=== PATIENT | male | born 1975 | race Caucasian/White ===

== ENCOUNTER 2017-03-05 15:54 | Observation (INO) | payer BC ==
[~2017-03-05] VITALS: Ht 182.9 cm; Wt 123.2 kg
[2017-03-05 19:48] VITALS: BP 159/94; PULSE 81; TEMP 36.7; O2SAT 96
[2017-03-05 19:56] VITALS: BP 159/94; PULSE 81; TEMP 36.7; Ht 182.9 cm; Wt 123.2 kg
[2017-03-05] MEDS ORDERED: ONDANSETRON INJ 2 MG/ML 2 ML VIAL IV PRN (21:00)
[2017-03-05] MEDS ORDERED: ACETAMINOPHEN 325 MG TAB PO PRN (21:00)
[2017-03-05] MEDS ORDERED: ATV/1 PO (21:04)
[2017-03-05] MEDS ORDERED: LORAZEPAM 0.5 MG TAB PO PRN (21:15)
[2017-03-05] MEDS ORDERED: IV FLUIDS COMPLETED PRN ×2 (21:15→23:15)
[2017-03-05] MEDS: SODIUM CHLORIDE 0.9% 1000ML 1,000 ML IV SCH (21:34)
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
[2017-03-05 22:17] LABS: PROTHROMBIN TIME (PATIENT) 10.4 SECONDS (9.0-12.0)
[2017-03-05 23:41] VITALS: BP 118/68; PULSE 81; TEMP 36.5; O2SAT 96
[2017-03-05 23:42] LABS: BENZODIAZEPINE, URINE NEG (NEG); COCAINE,URINE NEG (NEG); PHENCYCLIDINE, URINE NEG (NEG)
[2017-03-06] VITALS (8 sets, daily range): BP systolic 98–156; BP diastolic 59–94; PULSE 63–94; TEMP 36.5–37.2; O2SAT 92–99
[2017-03-06 03:19] LABS: HEMATOCRIT 38.9 % (42-52); MEAN CELL VOLUME 89.2 fL (80-100); MEAN CORPUSCULAR HEMOGLOBIN 30.5 pg (25-34); MEAN CORPUSCULAR HGB CONC 34.2 g/dl (32-36); MEAN PLATELET VOLUME 9.8 fL (7.4-10.4); PLATELET COUNT 229 K/uL (130-400); RED BLOOD COUNT 4.36 M/uL (4.7-6.1); WHITE BLOOD COUNT 6.22 K/uL (4.8-10.8)
[2017-03-06 03:35] LABS: BLOOD UREA NITROGEN 17 mg/dl (7-18); BUN/CREATININE RATIO 18.5 (10-20); CARBON DIOXIDE 33 mmol/L (21-32); CHLORIDE 110 mmol/L (98-107); CREATININE 0.93 mg/dl (0.60-1.40); GLUCOSE 127 mg/dl (70-99); POTASSIUM 4.3 mmol/L (3.5-5.1); SODIUM 143 mmol/L (136-145)
[2017-03-06] MEDS ORDERED: ENOXAPARIN 40 MG/0.4 ML SYR SC SCH (07:00)
[2017-03-06] MEDS: SODIUM CHLORIDE 0.9% 1000ML 1,000 ML IV SCH (10:35)
[2017-03-06] MEDS ORDERED: MECLIZINE HCL 12.5 MG TAB PO ONE (13:15)
--- NOTE | 2017-03-06 13:50 | Progress Note ---
Medicine Progress Note Date & Time of Visit: Mar 06, 2017 at 13:30. Subjective Pt was seen and examined Sitting in bed with no distress eating lunch Pt said that he still feels a little dizzy and lightheadedness Denies any chest pain, palpitation, dizziness and sob He ambulated with no difficulty during PT Objective Last 8 Hrs Date Time Temp Pulse Resp B/P Pulse Ox O2 Delivery O2 Flow Rate FiO2 03/06/17 11:35 37.2 63 20 156/94 96 Room Air 03/06/17 08:00 98 Room Air 03/06/17 07:15 36.5 84 20 125/76 98 Room Air 77 136/79 84 142/80 Physical Exam: General- No acute distress Head- atraumatic Eyes- PERRL, EOMI ENT- oropharynx clear Neck- supple, no JVD Lungs- clear to auscultation Heart- regular rhythm; no murmur Abdomen- normal bowel sounds, soft Extremities- no pretibial edema, no calf tenderness Neuro- alert, oriented x 3; PERRL, EOMI; no facial palsy; no dysarthria; motor 5 /5 bilaterally Skin- warm & dry Laboratory Results: Last 24 Hours Test 03/05/17 21:52 03/05/17 22:50 03/06/17 03:10 Prothrombin Time 10.4 SECONDS Prothromb Time International Ratio 1.0 Troponin I < 0.015 ng/ml < 0.015 ng/ml Urine Opiates Screen NEG Urine Methadone, Qualitative NEG Urine Barbiturates NEG Urine Phencyclidine (PCP) Level NEG Ur Amphetamine/Methamphetamine NEG MDMA (Ecstasy) Screen NEG Urine Benzodiazepines Screen NEG Urine Cocaine Metabolite NEG Urine Marijuana (THC) NEG White Blood Count 6.22 K/uL Red Blood Count 4.36 M/uL Hemoglobin 13.3 g/dL Hematocrit 38.9 % Mean Corpuscular Volume 89.2 fL Mean Corpuscular Hemoglobin 30.5 pg Mean Corpuscular Hemoglobin Concent 34.2 g/dl RDW Standard Deviation 38.3 fL RDW Coefficient of Variation 11.8 % Platelet Count 229 K/uL Mean Platelet Volume 9.8 fL Sodium Level 143 mmol/L Potassium Level 4.3 mmol/L Chloride Level 110 mmol/L Carbon Dioxide Level 33 mmol/L Anion Gap 0.0 mmol/L Blood Urea Nitrogen 17 mg/dl Creatinine 0.93 mg/dl Est Creatinine Clear Calc Drug Dose 143.9 ml/min Estimated GFR () 119.4 Estimated GFR (Non- 103.0 BUN/Creatinine Ratio 18.5 Random Glucose 127 mg/dl Calcium Level 8.0 mg/dl Thyroid Stimulating Hormone (TSH) 1.040 uIu/ml Free Thyroxine 0.94 ng/dl Assessment & Plan Near Syncope Unclear etiology possible related to dehydration CBC, CMP, Troponin, ECG, CT head, TSH was normal on review of records from [facility] No focal deficits on physical exam UDS negative troponin negative No arrhythmia on Tele monitor PT/OT Fall precautions Consider to get an MRI of the head, 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 MRI of the head showed no acute intracranial abnormality Symptom improved Echo showed: The left ventricle is normal in size. * Left ventricular systolic function is normal. * Ejection Fraction = 65-70%. * The right ventricular systolic function is normal. * The left atrial size is normal. * Right atrial size is normal. * No significant valvular pathology. Hypertension Mildly elevated likely secondary to anxiety Not on any home meds Monitor Anxiety: Continue Lorazepam PRN Depression Previously was on Effexor No acute issues DVT Px: Lovenox SQ Code status: Full code Disposition: Will discharge home today Follow up appointment with your Primary care provider Dr. Cabrera on March 11 @ 9:20 am Current Inpatient Medications: Current Inpatient Medications Medications (Trade) Dose Ordered Sig/Shelli Route Start Time Stop Time Status Last Admin Dose Admin Enoxaparin Sodium 40 mg 40 mg Q24H SC 03/06/17 07:00 04/05/17 06:59 Sodium Chloride (Nss 1000ml) 1,000 ml @ 75 mls/hr [id number] IV 03/05/17 20:56 04/04/17 20:55 03/06/17 10:35 75 MLS/HR Acetaminophen (Tylenol Tab) 650 mg Q4H PRN PO 03/05/17 21:00 04/04/17 20:59 Ondansetron HCl (Zofran Inj) 4 mg Q6H PRN IV 03/05/17 21:00 04/04/17 20:59 Lorazepam (Ativan Tab) 0.5 mg Q8H PRN PO 03/05/17 21:15 5/25/17 21:14 Miscellaneous (Iv Fluids Completed) 1 ea PRN PRN N/A 03/05/17 21:15 03/05/18 21:14
[2017-03-06] MEDS ORDERED: NURSING VERBAL MED ORDER ONE (14:00)
--- NOTE | 2017-03-06 16:20 | DIAGNOSTIC IMAGING REPORT ---
ORBIT RADIOGRAPHS 3 VIEWS HISTORY: pre-MRI screening. COMPARISON: None. FINDINGS: There are no radiopaque foreign bodies identified within the orbits. IMPRESSION: No radiopaque foreign bodies identified within the orbits. Electronically signed by: Godfrey Bauer M.D. 03/06/2017 4:18 PM Dictated Date/Time: 03/06/2017 4:18 PM
--- NOTE | 2017-03-06 16:36 | ECHOCARDIOGRAM REPORT ---
*NOTICE TO RECEIVING CONSTITUTION PARTY AGENCY This information is strictly Confidential and protected under [place] law. [place] law prohibits you from making any further disclosure of this information unless further disclosure is expressly permitted by the written consent of the person to whom it pertains or is authorized by law. A general authorization for the release of medical or other information is not sufficient for this purpose. Hospital accepts no responsibility if the information is made available to any other person, INCLUDING THE PATIENT. Interpretation Summary * Name: CORINNE CORREA Study Date: 03/06/2017 02:45 PM BP: 143/80 mmHg * Patient Location: [facility]\S\N275\S\2 HR: 82 * : 1975 (M/d/yyyy) Gender: Male Height: 72 in * Age: 41 yrs Ethnicity: [place] Weight: 268 lb * Ordering Physician: Prieto Bates * Referring Physician: Clyde Briones D.O. * Performed By: Honey Williamson * * Reason For Study: SYNCOPE * BSA: 2.4 m2 * -- Conclusions -- * The left ventricle is normal in size. * Left ventricular systolic function is normal. * Ejection Fraction = 65-70%. * The right ventricular systolic function is normal. * The left atrial size is normal. * Right atrial size is normal. * No significant valvular pathology. Procedure Details * A complete two-dimensional transthoracic echocardiogram was performed (2D, M-mode, Doppler and color flow Doppler). Left Ventricle * The left ventricle is normal in size. * There is normal left ventricular wall thickness. * Ejection Fraction = 65-70%. * Left ventricular systolic function is normal. * The left ventricular wall motion is normal. Right Ventricle * The right ventricle is normal size. * The right ventricular systolic function is normal. Atria * The left atrial size is normal. * Right atrial size is normal. * The interatrial septum is intact with no evidence for an atrial septal defect. Mitral Valve * The mitral valve is normal in structure and function. Tricuspid Valve * The tricuspid valve is normal in structure and function. Aortic Valve * The aortic valve is normal in structure and function. Pulmonic Valve * The pulmonic valve is not well visualized. * There is no significant pulmonary regurgitation. Great Vessels * The aortic root and proximal ascending aorta are normal sized. Pericardium/Pleural * There is no pericardial effusion. MMode 2D Measurements and Calculations IVSd 1.4 cm IVSs 1.9 cm LVIDd 4.8 cm LVIDs 3.0 cm LVPWd 0.94 cm LVPWs 1.6 cm IVS/LVPW 1.5 FS 37.8 % EDV(Teich) 109.1 ml ESV(Teich) 35.1 ml EF(Teich) 67.8 % EDV(cubed) 112.6 ml ESV(cubed) 27.1 ml EF(cubed) 76.0 % % IVS thick 42.2 % % LVPW thick 69.4 % LV mass(C)d 208.1 grams LV mass(C)dI 86.3 grams/m\S\2 LV mass(C)s 209.3 grams LV mass(C)sI 86.7 grams/m\S\2 CO(Teich) 5.1 l/min CI(Teich) 2.1 l/min/m\S\2 SV(Teich) 74.0 ml SI(Teich) 30.7 ml/m\S\2 CO(cubed) 5.9 l/min CI(cubed) 2.4 l/min/m\S\2 SV(cubed) 85.5 ml SI(cubed) 35.5 ml/m\S\2 ACS 1.5 cm LA dimension 3.8 cm asc Aorta Diam 3.0 cm LVOT diam 2.0 cm LVOT area 3.2 cm\S\2 LVAd ap4 35.8 cm\S\2 LVLd ap4 9.5 cm EDV(MOD-sp4) 111.0 ml LVAs ap4 18.2 cm\S\2 LVLs ap4 7.9 cm ESV(MOD-sp4) 35.0 ml EF(MOD-sp4) 68.5 % LVAd ap2 24.6 cm\S\2 LVLd ap2 7.8 cm EDV(MOD-sp2) 63.0 ml LVAs ap2 13.1 cm\S\2 LVLs ap2 6.7 cm ESV(MOD-sp2) 22.0 ml EF(MOD-sp2) 65.1 % CO(MOD-sp4) 5.2 l/min CI(MOD-sp4) 2.2 l/min/m\S\2 SV(MOD-sp4) 76.0 ml SI(MOD-sp4) 31.5 ml/m\S\2 CO(MOD-sp2) 2.8 l/min CI(MOD-sp2) 1.2 l/min/m\S\2 SV(MOD-sp2) 41.0 ml SI(MOD-sp2) 17.0 ml/m\S\2 Doppler Measurements and Calculations MV E max jerri 80.5 cm/sec MV A max jerri 55.8 cm/sec MV E/A 1.4 MV dec time 0.25 sec Ao V2 max 125.1 cm/sec Ao max PG 6.3 mmHg Ao max PG (full) 3.2 mmHg ADELA(V,A) 2.2 cm\S\2 ADELA(V,D) 2.2 cm\S\2 LV V1 max PG 3.0 mmHg LV V1 max 86.9 cm/sec PA V2 max 90.3 cm/sec PA max PG 3.3 mmHg PI end-d jerri 69.2 cm/sec TR max jerri 196.8 cm/sec
--- NOTE | 2017-03-06 17:28 | DIAGNOSTIC IMAGING REPORT ---
Brain MRI WITHOUT CONTRAST HISTORY: near syncope(wait for orbital xray result before getting the MRI TECHNIQUE: Multiplanar multisequence MRI of the brain was performed without the use of contrast. COMPARISON STUDY: None. FINDINGS: There are no areas of restricted diffusion to suggest acute infarction. The midline structures are intact. The paranasal sinuses are clear. The mastoid air cells are clear. The ventricles and sulci are within normal limits for age. There is no mass, hematoma, midline shift. The major vascular flow-voids at the skull base are well maintained. IMPRESSION: No acute intracranial abnormality. Electronically signed by: Shorty Yoon M.D. 03/06/2017 5:26 PM Dictated Date/Time: 03/06/2017 5:21 PM
[2017-03-06] MEDS ORDERED: ANT25 PO (18:13)
[2017-03-06] MEDS ORDERED: MECLIZINE HCL 12.5 MG TAB PO PRN (18:15)
--- NOTE | 2017-03-06 18:18 | Discharge Instructions ---
Discharge Instructions Date of Service Mar 06, 2017. Admission Reason for Admission: Near Syncope Discharge Discharge Diagnosis / Problem: Dizziness/ Lightheadeness, Anxiety Discharge Goals Goal(s): Decrease discomfort, Improve function, Improve disease control Activity Recommendations Activity Limitations: resume your previous activity (as tolerated) Instructions / Follow-Up Instructions / Follow-Up Follow up appointment with your Primary care provider Dr. Cabrera on March 11 @ 9:20 am Fall precaution Meclizine was prescribed as needed for the dizziness Current Hospital Diet Patient's current hospital diet: Regular Diet Discharge Diet Recommended Diet: Regular Diet Pending Studies Studies pending at discharge: no Medical Emergencies . Who to Call and When: Medical Emergencies: If at any time you feel your situation is an emergency, please call 911 immediately. . Non-Emergent Contact Non-Emergency issues call your: Primary Care Provider . . "Provider Documentation" section prepared by Taylor Lopez. . VTE Core Measure Inpt VTE Proph given/why not?: Enoxaparin (Lovenox)SQ
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
== END 2017-03-06 19:30 | disposition home or self-care (01) ==
LOC: INTOOBSV 19:00 → C.MED 19:00
PROVIDERS: ADMIT Internal Medicine; ATTEND Internal Medicine
DX: R42 Dizziness and giddiness (principal); R55 Syncope and collapse; I10 Essential (primary) hypertension; Z87.891 Personal history of nicotine dependence; Z83.3 Family history of diabetes mellitus; Z82.49 Family history of ischemic heart disease and other diseases of the circulatory system